=== PATIENT | female | born 1950 | race Caucasian/White ===

== ENCOUNTER 2017-01-26 13:16 | Day surgery (SDC) | payer OTHER ==
--- NOTE | 2017-01-22 21:11 | HP ---
CC: Dr. Lisa Fernandez; Dr. Darshan Mcintosh* ADMITTING HISTORY AND PHYSICAL: DATE OF ADMISSION: 01/26/17 ADMITTING DIAGNOSES: 1. Gross hematuria. 2. Calculus, right proximal ureter. PLANNED PROCEDURE: Shock wave lithotripsy of the calculus, right proximal ureter. SURGEON: Dr. Mcintosh. HISTORY OF PRESENT ILLNESS: Stephanie Tolbert is a 66-year-old lady with recurrent renal calculi. She was recently evaluated for gross hematuria. She was noted to have a 6-mm calculus at the right ureteropelvic junction and is now being brought in for lithotripsy. PAST MEDICAL HISTORY: Significant for: 1. Anxiety, depression. 2. Diabetes. 3. Hypertension. 4. Recurrent renal calculi. MEDICATIONS ON ADMISSION: 1. Duloxetine 60 mg q.a.m. 2. Lisinopril 20 mg q.a.m. 3. Glipizide 10 mg q.a.m. 4. Metformin 500 mg q.a.m. 5. Glipizide 10 mg q.p.m. 6. Metformin 1000 mg q.p.m. 7. [place] carbonate 600 mg a day alternating with 300 mg a day. 8. Atorvastatin 10 mg daily. ALLERGIES AND INTOLERANCES: FLOXIN, PROZAC, BIAXIN, NORTRIPTYLINE, and ZOLOFT. PHYSICAL EXAMINATION GENERAL: Reveals a pleasant, anxious-appearing, middle-aged lady. VITAL SIGNS: Blood pressure is 120/70, pulse 95 per minute, temperature 97.7, oxygen saturation 98% on room air. LUNGS: Clear bilaterally. CARDIOVASCULAR: Regular rate and rhythm. S1, S2. ABDOMEN: Soft with mild right flank tenderness. IMPRESSION AND PLAN: A 66-year-old lady with gross hematuria secondary to calculus at the right ureteropelvic junction. Planned procedure is shockwave lithotripsy of calculus, right proximal ureter. [id number]/[facility] #: [id number] [facility]
[~2017-01-26 13:16] MED LIST: Buffered Lidocaine 0.9% SYRIN* 5 ML/SYR SYRINGE INTRADERM ONE; Dexamethasone IV* 4 MG/ML 1 ML (4 MG) IV SLOW PU ONE; Famotidine IV* 10 MG/ML 2 ML (20 mg) IV ONE; Scopolamine 1.5 mg* PATCH TRANSDERM ONE
--- NOTE | 2017-01-26 13:56 | RAD ---
INDICATION: Right ureteral calculus. Gross hematuria. COMPARISON: Most recent KUB is dated January 22, 2017 TECHNIQUE: 2 views the abdomen were obtained. FINDINGS: Overlying the expected location of the right ureteropelvic junction/proximal ureter is a cluster of calcification measuring 6 mm in greatest dimension. This corresponds to a similar size calcification seen on the prior KUB. There are no large calcifications overlying the left collecting system or more inferior lower ureters. IMPRESSION:6 MM CLUSTER CALCIFICATIONS AT THE RIGHT URETEROPELVIC JUNCTION/PROXIMAL URETER SIMILAR IN APPEARANCE TO THE PRIOR KUB.
[2017-01-26] MEDS ORDERED: Famotidine IV* 10 MG/ML 2 ML (20 mg) ONE (14:15)
[2017-01-26] MEDS ORDERED: Dexamethasone IV* 4 MG/ML 1 ML (4 MG) ONE (14:15)
[2017-01-26] MEDS ORDERED: Scopolamine 1.5 mg* PATCH ONE (14:16)
[2017-01-26] MEDS ORDERED: cefTRIAXone(*) 2 GM ADDV.VIAL IVPB ONE (14:17)
[2017-01-26] MEDS ORDERED: Midazolam* 1 MG/ML 2 ML VIAL (2 MG) ONE (14:43)
[2017-01-26] MEDS ORDERED: fentaNYL* 50 MCG/ML 2 ML VIAL (100 MCG VIAL) ONE (14:43)
[2017-01-26] MEDS ORDERED: fentaNYL* 50 MCG/ML 2 ML VIAL (100 MCG VIAL) IV PRN ×2 (14:55)
[2017-01-26] MEDS ORDERED: DiMENhydriNATE IV* 50 MG/ML VIAL IV PUSH PRN (14:55)
[2017-01-26] MEDS ORDERED: Ondansetron INJ* 2 MG/ML VIAL ONE (15:47)
[2017-01-26] MEDS ORDERED: Propofol* 10 MG/ML 20 ML BTL IV PUSH ONE (15:47)
[2017-01-26 17:48] VITALS: BP 122/59
--- NOTE | 2017-01-26 18:11 | RAD ---
INDICATION: Right-sided ESWL COMPARISON: January 26, 2017 TECHNIQUE: A single view of the abdomen is submitted. FINDINGS: Bones: There are no acute bony findings. Soft tissues: The soft tissues appear normal. The psoas margins are sharp. Bowel gas pattern: Normal Calcifications: There is interval fragmentation of the right renal tricuspid multiple small fragments project over the expected position of the proximal right ureter. Other: None IMPRESSION: INTERVAL FRAGMENTATION OF RIGHT RENAL CALCULUS
--- NOTE | 2017-01-27 06:52 | OP ---
CC: Kamini Rubio NP; Dr. Mcintosh* OPERATIVE SUMMARY: DATE OF OPERATION: 01/26/17 - [facility] DATE OF : [birth year] SURGEON: Darshan Mcintosh MD ANESTHESIOLOGIST: Dr. Jimenez. ANESTHESIA: General. PRE-OP DIAGNOSIS: Calculus, right proximal ureter. POST-OP DIAGNOSIS: Calculus, right proximal ureter. OPERATIVE PROCEDURE: Shockwave lithotripsy of calculus, right ureter. INDICATIONS: Stephanie Tolbert is a 66-year-old lady with a history of recurrent renal calculi. She was recently evaluated for gross hematuria and noted to have a 6-7 mm calculus in the right proximal ureter. COMPLICATIONS: None. POSTOPERATIVE CONDITION: Stable. DESCRIPTION OF PROCEDURE: After induction of general anesthesia, the patient was placed on the lithotripsy table in supine position. The calculus in the proximal right ureter was identified using fluoroscopy. Shockwave lithotripsy was commenced at a rate of 90 shocks per minute. Periodic imaging revealed good localization and fragmentation and a total of 1400 shocks were administered. The patient tolerated the procedure satisfactorily and was transferred back to the recovery area in stable condition. [id number]/[facility] #: [id number] MTDD
== END 2017-01-26 17:46 | disposition home or self-care (01) ==
LOC: OR 13:16
PROVIDERS: ATTEND Urology
DX: N20.1 Calculus of ureter (principal); R31.0 Gross hematuria; E11.9 Type 2 diabetes mellitus without complications; Z79.84 Long term (current) use of oral hypoglycemic drugs; F41.8 Other specified anxiety disorders; I10 Essential (primary) hypertension; F31.9 Bipolar disorder, unspecified
CPT/HCPCS: 74000; A9270-GY; J0696; J1100; J2250; J2405; J2704; J3010

== ENCOUNTER 2018-04-20 08:42 | Day surgery (SDC) | payer MEDICARE, BC ==
[2018-04-20] MEDS ORDERED: Midazolam* 1 MG/ML 2 ML VIAL (2 MG) ONE (10:25)
[2018-04-20] MEDS ORDERED: fentaNYL* 50 MCG/ML 2 ML VIAL (100 MCG VIAL) ONE (10:25)
[2018-04-20] MEDS ORDERED: Ondansetron INJ* 2 MG/ML VIAL ONE (10:42)
[2018-04-20] MEDS ORDERED: Ketorolac 0.5% OPHTH (NF) 0.5 % 5 ML BTL ONE (11:12)
[2018-04-20] MEDS ORDERED: Phenylephrine 2.5% OPTH.SOL* 2 ML BTL ONE (11:12)
[2018-04-20] MEDS ORDERED: Neomycin/Polymy/Dex OPHTH.OIN* 3.5 GM ONE (11:12)
[2018-04-20] MEDS ORDERED: Tetracaine 0.5% OPTH.SOL 4 ML* 1 DROP BTL ONE (11:12)
[2018-04-20] MEDS ORDERED: Lidocaine 1%* 5 ML VIAL ONE (11:12)
[2018-04-20] MEDS ORDERED: Tropicamide 1% OPTH.SOL* BTL ONE (11:12)
[2018-04-20] MEDS ORDERED: Cyclopentolate 1% OPTH.SOL* 2 ML BTL ONE (11:12)
[2018-04-20 11:36] VITALS: BP 134/68
--- NOTE | 2018-04-20 12:50 | OP ---
DATE OF OPERATION/DATE OF DICTATION: 04/20/2018 - [facility] DATE OF : 1950. SURGEON: Dr. Raúl Toure. SALES REPRESENTATIVE PRINTING SUPPLIES: None. ANESTHESIA: Topical with intravenous sedation. PRE-OP DIAGNOSIS: Cataract, right eye. POST-OP DIAGNOSIS: Cataract, right eye. OPERATIVE PROCEDURE: Phacoemulsification and cataract extraction with posterior chamber intraocular lens implant, right eye. COMPLICATIONS: None. BLOOD LOSS: None. DESCRIPTION OF PROCEDURE: The patient was brought to the operating room and received a small amount of intravenous sedation. A drop of Tetracaine was placed in her right eye. She was prepped and draped in the usual sterile fashion for ophthalmic surgery and attention was directed to the right eye where a speculum was placed. A paracentesis was created at the 11 o'clock position and 0.1 cc of 1 percent preservative-free Lidocaine was injected into the anterior chamber followed by DisCoVisc. The eye was digitally stabilized while a 2.75 mm keratome was used to create a triplanar clear corneal incision at the 9 o'clock position. A continuous curvilinear capsulorrhexis was created with a cystotome and Utrata forceps. BSS on a cannula was used to hydrodissect the lens from the capsule. Phacoemulsification was performed in a divide-and- conquer technique to create four fragments which were removed. Residual cortical material was removed with irrigation and aspiration. DisCoVisc was used to inflate the capsular bag and an AUOOTO 21.0 diopter lens was folded and inserted into the capsular bag. DisCoVisc was removed using irrigation and aspiration. BSS on a cannula was used to hydrate the corneal stroma and seal the wound. At the end of the case the pupil was round and the lens was centered. The eye was of normal pressure and the wound was water tight. The speculum was removed and topical Maxitrol ointment was placed on the surface of the eye. The eye was closed, patched and shielded and the patient was sent to the recovery room in stable condition with post operative instructions and follow-up appointment given. [id number]/[facility] #: [id number] MTDD
== END 2018-04-20 11:45 | disposition home or self-care (01) ==
LOC: OREAST 08:42
PROVIDERS: ATTEND Ophthalmology
DX: H25.11 Age-related nuclear cataract, right eye (principal); E11.9 Type 2 diabetes mellitus without complications; Z79.84 Long term (current) use of oral hypoglycemic drugs; I10 Essential (primary) hypertension; E78.5 Hyperlipidemia, unspecified; F31.9 Bipolar disorder, unspecified
CPT/HCPCS: A9270-GY; J2250; J2405; J3010; V2632

== ENCOUNTER 2018-04-27 08:06 | Day surgery (SDC) | payer MEDICARE, BC ==
[~2018-04-27 08:06] MED LIST changes: +Acetaminophen TAB* 325 MG PO PRN; -Buffered Lidocaine 0.9% SYRIN* 5 ML/SYR SYRINGE INTRADERM ONE; +Buffered Lidocaine 1% SYRIN* 1 ML/SYRINGE INTRADERM ONE; -Dexamethasone IV* 4 MG/ML 1 ML (4 MG) IV SLOW PU ONE; -Famotidine IV* 10 MG/ML 2 ML (20 mg) IV ONE; -Scopolamine 1.5 mg* PATCH TRANSDERM ONE
[2018-04-27] MEDS ORDERED: Midazolam* 1 MG/ML 2 ML VIAL (2 MG) ONE (10:11)
[2018-04-27] MEDS ORDERED: fentaNYL* 50 MCG/ML 2 ML VIAL (100 MCG VIAL) ONE (10:11)
[2018-04-27] MEDS ORDERED: Ondansetron INJ* 2 MG/ML VIAL ONE (10:55)
[2018-04-27 11:39] VITALS: BP 137/65
[2018-04-27] MEDS ORDERED: Cyclopentolate 1% OPTH.SOL* 2 ML BTL ONE (11:48)
[2018-04-27] MEDS ORDERED: Neomycin/Polymy/Dex OPHTH.OIN* 3.5 GM ONE (11:48)
[2018-04-27] MEDS ORDERED: Phenylephrine 2.5% OPTH.SOL* 2 ML BTL ONE (11:48)
[2018-04-27] MEDS ORDERED: Lidocaine 1%* 5 ML VIAL ONE (11:48)
[2018-04-27] MEDS ORDERED: Tropicamide 1% OPTH.SOL* BTL ONE (11:48)
[2018-04-27] MEDS ORDERED: Tetracaine 0.5% OPTH.SOL 4 ML* 1 DROP BTL ONE (11:49)
[2018-04-27] MEDS ORDERED: Ketorolac 0.5% OPHTH (NF) 0.5 % 5 ML BTL ONE (11:49)
--- NOTE | 2018-04-27 12:38 | OP ---
DATE OF OPERATION: 04/27/18 [facility] DATE OF : [birth year]. SURGEON: Dr. Raúl Toure. FASTENER TECHNOLOGIST: None. ANESTHESIA: Topical with intravenous sedation. PRE-OP DIAGNOSIS: Cataract, left eye. POST-OP DIAGNOSIS: Cataract, left eye. OPERATIVE PROCEDURE: Phacoemulsification and cataract extraction with posterior chamber intraocular lens implant, left eye. COMPLICATIONS: None. BLOOD LOSS: None. DESCRIPTION OF PROCEDURE: The patient was brought to the operating room and received a small amount of intravenous sedation. A drop of Tetracaine was placed in her left eye. She was prepped and draped in the usual sterile fashion for ophthalmic surgery and attention was directed to the left eye where a speculum was placed. A paracentesis was created at the 5 o'clock position and 0.1 cc of 1 percent preservative-free Lidocaine was injected into the anterior chamber followed by DisCoVisc. The eye was digitally stabilized while a 2.75 mm keratome was used to create a triplanar clear corneal incision at the 3 o'clock position. A continuous curvilinear capsulorrhexis was created with a cystotome and Utrata forceps. BSS on a cannula was used to hydrodissect the lens from the capsule. Phacoemulsification was performed in a divide-and- conquer technique to create four fragments which were removed. Residual cortical material was removed with irrigation and aspiration. DisCoVisc was used to inflate the capsular bag and an AU00T0 21.5 diopter lens was folded and inserted into the capsular bag. DisCoVisc was removed using irrigation and aspiration. BSS on a cannula was used to hydrate the corneal stroma and seal the wound. At the end of the case the pupil was round and the lens was centered. The eye was of normal pressure and the wound was water tight. The speculum was removed and topical Maxitrol ointment was placed on the surface of the eye. The eye was closed, patched and shielded and the patient was sent to the recovery room in stable condition with post operative instructions and follow-up appointment given. [id number]/[facility] #: [id number] MARIA C
== END 2018-04-27 11:35 | disposition home or self-care (01) ==
LOC: OREAST 08:06
PROVIDERS: ATTEND Ophthalmology
DX: H25.12 Age-related nuclear cataract, left eye (principal); E11.9 Type 2 diabetes mellitus without complications; Z79.84 Long term (current) use of oral hypoglycemic drugs; I10 Essential (primary) hypertension; E78.5 Hyperlipidemia, unspecified; F31.9 Bipolar disorder, unspecified
CPT/HCPCS: A9270-GY; J2250; J2405; J3010; V2632

== ENCOUNTER 2019-12-15 09:22 | Inpatient (IN) ==
[2019-12-15 09:56] LABS: ABS Basophils 0.1 10^3/ul (0-0.2); ABS Eosinophils 0.1 10^3/ul (0-0.6); ABS Lymphocytes 2.1 10^3/ul (1.0-4.8); ABS Monocytes 1.1 10^3/ul (0-0.8); ABS Neutrophils 12.8 10^3/ul (1.5-7.7); Eosinophil % 0.8 %; Hematocrit 45 % (35-47); Hemoglobin 14.8 g/dL (12.0-16.0); Lymphocyte % 12.8 %; Mean Corpuscular HGB Conc 33 g/dL (31-36); Mean Corpuscular Hemoglobin 29 pg (27-31); Mean Corpuscular Volume 87 fL (80-97); Mean Platelet Volume 8.2 fL (7.4-10.4); Platelet Count 419 10^3/uL (150-450); Red Blood Count 5.15 10^6 /uL (3.70-4.87); Red Cell Distribution Width 14 % (10-15)
[2019-12-15 10:13] LABS: ALT 54 U/L (7-52); AST 28 U/L (13-39); Albumin 4.8 g/dL (3.2-5.2); Albumin/Globulin Ratio 1.9 (1-3); Alkaline Phosphatase 96 U/L (34-104); Anion Gap 11 mmol/L (2-11); BUN/Creatinine Ratio 20.5 (8-20); Blood Urea Nitrogen 15 mg/dL (6-24); CO2 Carbon Dioxide 20 mmol/L (22-32); Calcium 11.2 mg/dL (8.6-10.3); Chloride 105 mmol/L (101-111); EGFR African American 96.2 (>60); EGFR Non-African American 79.5 (>60); Globulin 2.5 g/dL (2-4); Glucose 171 mg/dL (70-100); Sodium 136 mmol/L (135-145); Total Protein 7.3 g/dL (6.4-8.9)
[2019-12-15 10:54] LABS: Acetaminophen < 15 mcg/mL; Alcohol, S < 10 mg/dL (<10); Salicylate < 2.50 mg/dL (<30)
[2019-12-15 11:03] LABS: TSH Ultra Thyroid Stim Horm 1.86 mcIU/mL (0.34-5.60)
[2019-12-15] MEDS: metroNIDAZOLE VAGINAL 0.75% 70 GM VAGINAL SCH (20:04)
[2019-12-16 08:23] LABS: HDL Cholesterol 34.9 mg/dL
[2019-12-16] MEDS: Aspirin EC 81 mg TAB.EC (enteric coated) PO SCH (08:30)
[2019-12-16] MEDS: Vitamin THERAPEUTIC TAB PO SCH (08:32)
[2019-12-16] MEDS: MAGNESIUM PO SCH (08:33)
[2019-12-16] MEDS ORDERED: DULoxetine DR 30 mg CAP PO SCH (09:00)
[2019-12-16] MEDS: metroNIDAZOLE VAGINAL 0.75% 70 GM VAGINAL SCH (20:37)
[2019-12-16] MEDS: Lithium Carbonate ER 450mg TAB PO SCH (20:51)
[2019-12-17] MEDS: Vitamin THERAPEUTIC TAB PO SCH (07:47)
[2019-12-17] MEDS: DULoxetine DR 30 mg CAP PO SCH (07:47)
[2019-12-17] MEDS: Aspirin EC 81 mg TAB.EC (enteric coated) PO SCH (07:47)
[2019-12-17] MEDS: MAGNESIUM PO SCH (07:48)
[2019-12-17] MEDS: Al Hydrox/Mg Hydrox/Simet LIQ 30 ML UDC PO PRN (14:14)
[2019-12-17] MEDS: Lithium Carbonate ER 450mg TAB PO SCH (20:07)
[2019-12-17] MEDS: metroNIDAZOLE VAGINAL 0.75% 70 GM VAGINAL SCH (20:09)
[2019-12-18] MEDS ORDERED: Dextrose 50% Syringe 50 ml 25 GM/50 ML SYRINGE IV PUSH PRN ×2 (08:24→09:04)
[2019-12-18] MEDS: MAGNESIUM PO SCH (09:46)
[2019-12-18] MEDS: Aspirin EC 81 mg TAB.EC (enteric coated) PO SCH (09:57)
[2019-12-18] MEDS: Vitamin THERAPEUTIC TAB PO SCH (09:57)
[2019-12-18] MEDS: DULoxetine DR 30 mg CAP PO SCH (09:57)
[2019-12-18 12:30] LABS: Urine Appearance Cloudy; Urine Bilirubin Negative (Negative); Urine Blood Negative (Negative); Urine Color Yellow; Urine Glucose 2+(150 mg/dL) (Negative); Urine Ketones Negative (Negative); Urine Nitrite Negative (Negative); Urine Protein Negative (Negative); Urine Specific Gravity 1.012 (1.010-1.030); Urine Urobilinogen Negative (Negative)
[2019-12-18 12:42] LABS: Urine Benzodiazepine Screen None Detected (None Detect); Urine Cannabinoids Screen None Detected (None Detect); Urine Opiates Screen None Detected (None Detect)
[2019-12-18] MEDS: Lithium Carbonate ER 450mg TAB PO SCH (19:42)
[2019-12-18] MEDS: metroNIDAZOLE VAGINAL 0.75% 70 GM VAGINAL SCH (20:37)
[2019-12-19] MEDS: Vitamin THERAPEUTIC TAB PO SCH (08:32)
[2019-12-19] MEDS: MAGNESIUM PO SCH (08:32)
[2019-12-19] MEDS: DULoxetine DR 30 mg CAP PO SCH (08:32)
[2019-12-19] MEDS: Aspirin EC 81 mg TAB.EC (enteric coated) PO SCH (08:32)
[2019-12-19] MEDS: Lithium Carbonate ER 450mg TAB PO SCH (20:07)
[2019-12-19] MEDS: metroNIDAZOLE VAGINAL 0.75% 70 GM VAGINAL SCH (21:21)
[2019-12-20] MEDS: Aspirin EC 81 mg TAB.EC (enteric coated) PO SCH (08:22)
[2019-12-20] MEDS: DULoxetine DR 30 mg CAP PO SCH (08:22)
[2019-12-20] MEDS: MAGNESIUM PO SCH (08:23)
[2019-12-20] MEDS: Vitamin THERAPEUTIC TAB PO SCH (08:23)
[2019-12-20] MEDS: Lithium Carbonate ER 450mg TAB PO SCH (19:31)
[2019-12-21] MEDS: Aspirin EC 81 mg TAB.EC (enteric coated) PO SCH (07:54)
[2019-12-21] MEDS: Vitamin THERAPEUTIC TAB PO SCH (07:54)
[2019-12-21] MEDS ORDERED: DULoxetine DR 20 mg CAP PO SCH (09:00)
[2019-12-21] MEDS: Lithium Carbonate ER 450mg TAB PO SCH (19:57)
[2019-12-22 07:48] LABS: Calcium 11.4 mg/dL (8.6-10.3); EGFR African American 86.6 (>60); EGFR Non-African American 71.5 (>60); Potassium 5.1 mmol/L (3.5-5.0)
[2019-12-22 08:20] LABS: Lithium 1.7 mmol/L (0.6-1.2)
[2019-12-22] MEDS: Aspirin EC 81 mg TAB.EC (enteric coated) PO SCH (08:25)
[2019-12-22] MEDS: Vitamin THERAPEUTIC TAB PO SCH (08:25)
[2019-12-23 07:34] LABS: BUN/Creatinine Ratio 36.9 (8-20); Calcium 11.7 mg/dL (8.6-10.3); EGFR African American 81.8 (>60); EGFR Non-African American 67.6 (>60); Potassium 4.8 mmol/L (3.5-5.0)
[2019-12-23] MEDS: Aspirin EC 81 mg TAB.EC (enteric coated) PO SCH (07:50)
[2019-12-23] MEDS: Vitamin THERAPEUTIC TAB PO SCH (07:51)
[2019-12-23 13:48] LABS: Urine Calcium 43 mg/24 h (<200); Urine Calcium Conc 5 mg/dL; Urine Collection Duration 24 h
[2019-12-24 07:30] LABS: Hematocrit 40 % (35-47); Hemoglobin 13.7 g/dL (12.0-16.0); Mean Corpuscular HGB Conc 34 g/dL (31-36); Mean Corpuscular Hemoglobin 30 pg (27-31); Mean Corpuscular Volume 86 fL (80-97); Platelet Count 378 10^3/uL (150-450); Red Blood Count 4.61 10^6 /uL (3.70-4.87); Red Cell Distribution Width 13 % (10-15); White Blood Count 12.5 10^3/uL (3.5-10.8)
[2019-12-24 07:47] LABS: Albumin 4.3 g/dL (3.2-5.2); Albumin/Globulin Ratio 1.7 (1-3); BUN/Creatinine Ratio 32.9 (8-20); Calcium 11.1 mg/dL (8.6-10.3); EGFR African American 84.1 (>60); EGFR Non-African American 69.5 (>60); Globulin 2.6 g/dL (2-4); Magnesium 1.8 mg/dL (1.9-2.7); Potassium 4.9 mmol/L (3.5-5.0); Total Bilirubin 0.6 mg/dL (0.2-1.0); Total Protein 6.9 g/dL (6.4-8.9)
[2019-12-24 08:09] LABS: Lithium 0.92 mmol/L (0.6-1.2)
[2019-12-24] MEDS: Aspirin EC 81 mg TAB.EC (enteric coated) PO SCH (08:53)
[2019-12-24] MEDS: Vitamin THERAPEUTIC TAB PO SCH (08:53)
[2019-12-24 08:57] LABS: ABS Basophils 0.1 10^3/ul (0-0.2); ABS Eosinophils 0.2 10^3/ul (0-0.6); ABS Lymphocytes 2.3 10^3/ul (1.0-4.8); ABS Monocytes 0.7 10^3/ul (0-0.8); ABS Neutrophils 9.2 10^3/ul (1.5-7.7); Eosinophil % 1.5 %; Lymphocyte % 18.1 %
[2019-12-25] MEDS: Aspirin EC 81 mg TAB.EC (enteric coated) PO SCH (08:10)
[2019-12-25] MEDS: Vitamin THERAPEUTIC TAB PO SCH (08:10)
[2019-12-25 09:02] LABS: Lithium 0.68 mmol/L (0.6-1.2)
[2019-12-26] MEDS: Aspirin EC 81 mg TAB.EC (enteric coated) PO SCH (09:13)
[2019-12-26] MEDS: Vitamin THERAPEUTIC TAB PO SCH (09:13)
[2019-12-26 17:10] LABS: Albumin 3.2 g/dL (3.4-4.7); Albumin/Globulin Ratio 1.16; Gamma Globulin 0.5 g/dL (0.6-1.6)
[2019-12-26] MEDS: Al Hydrox/Mg Hydrox/Simet LIQ 30 ML UDC PO PRN (18:07)
[2019-12-26 18:48] LABS: Calcium 11.5 mg/dL (8.6-10.3)
[2019-12-26 21:32] LABS: Kappa Free Light Chain 1.49 mg/dL; Lambda Free Light Chain 1.53 mg/dL
[2019-12-27] MEDS: Aspirin EC 81 mg TAB.EC (enteric coated) PO SCH (08:19)
[2019-12-27] MEDS: Vitamin THERAPEUTIC TAB PO SCH (08:20)
[2019-12-28] MEDS: Aspirin EC 81 mg TAB.EC (enteric coated) PO SCH (07:52)
[2019-12-28] MEDS: Vitamin THERAPEUTIC TAB PO SCH (08:01)
[2019-12-28 10:35] LABS: Albumin 37 %; Gamma Globulin 8 %; Total Protein(PEP) Urine 13 mg/dL
[2019-12-29] MEDS: Aspirin EC 81 mg TAB.EC (enteric coated) PO SCH (08:28)
[2019-12-29] MEDS: Vitamin THERAPEUTIC TAB PO SCH (09:27)
[2019-12-30 08:20] LABS: BUN/Creatinine Ratio 28.4 (8-20); Calcium 10.1 mg/dL (8.6-10.3); EGFR African American 106.2 (>60); EGFR Non-African American 87.8 (>60); Magnesium 1.9 mg/dL (1.9-2.7); Potassium 4.7 mmol/L (3.5-5.0)
[2019-12-30] MEDS: Aspirin EC 81 mg TAB.EC (enteric coated) PO SCH (08:25)
[2019-12-30] MEDS: Vitamin THERAPEUTIC TAB PO SCH (08:25)
[2019-12-30 09:11] VITALS: BP 142/71
== END 2019-12-30 09:30 | disposition home or self-care (01) | DRG 885 ==
LOC: ED 09:22 → BSU 14:20 → MEDTELE 12-18 09:27 → BSU 12-19 11:26
PROVIDERS: ADMIT Psychiatry & Neurology Psychiatry; ATTEND Psychiatry & Neurology Psychiatry

== ENCOUNTER 2020-01-11 09:38 | Inpatient (IN) ==
[2020-01-11] MEDS ORDERED: NS 0.9% 1000 ml BAG 1,000 ML IV ONE ×2 (09:58→10:56)
[2020-01-11] MEDS ORDERED: Lorazepam PYXIS KEY PRN (09:59)
[2020-01-11] MEDS ORDERED: LORazepam 2 mg VIAL 1 ml IV PUSH ONE (09:59)
[2020-01-11 10:20] LABS: ABS Monocytes 0.8 10^3/ul (0-0.8); ABS Neutrophils 7.1 10^3/ul (1.5-7.7); Eosinophil % 0.3 %; Hematocrit 39 % (35-47); Hemoglobin 13.3 g/dL (12.0-16.0); Lymphocyte % 19.9 %; Mean Corpuscular HGB Conc 34 g/dL (31-36); Mean Corpuscular Hemoglobin 30 pg (27-31); Mean Corpuscular Volume 86 fL (80-97); Mean Platelet Volume 8.3 fL (7.4-10.4); Platelet Count 401 10^3/uL (150-450); Red Blood Count 4.51 10^6 /uL (3.70-4.87); Red Cell Distribution Width 14 % (10-15); White Blood Count 9.9 10^3/uL (3.5-10.8)
[2020-01-11 10:42] LABS: ALT 46 U/L (7-52); AST 22 U/L (13-39); Albumin 4.3 g/dL (3.2-5.2); Albumin/Globulin Ratio 1.7 (1-3); Alkaline Phosphatase 96 U/L (34-104); Anion Gap 12 mmol/L (2-11); BUN/Creatinine Ratio 25.6 (8-20); Blood Urea Nitrogen 22 mg/dL (6-24); CO2 Carbon Dioxide 23 mmol/L (22-32); Calcium 10.3 mg/dL (8.6-10.3); Chloride 103 mmol/L (101-111); Creatine Kinase 42 U/L (10-223); EGFR African American 79.6 (>60); EGFR Non-African American 65.8 (>60); Globulin 2.5 g/dL (2-4); Glucose 165 mg/dL (70-100); Magnesium 2.2 mg/dL (1.9-2.7); Potassium 3.9 mmol/L (3.5-5.0); Sodium 138 mmol/L (135-145); Total Protein 6.8 g/dL (6.4-8.9)
[2020-01-11 10:43] LABS: Troponin I 0.01 ng/mL (<0.03)
[2020-01-11 10:57] LABS: Urine Appearance Cloudy; Urine Benzodiazepine Screen None Detected (None Detect); Urine Bilirubin Negative (Negative); Urine Blood 1+ (Negative); Urine Cannabinoids Screen None Detected (None Detect); Urine Color Straw; Urine Glucose Negative (Negative); Urine Ketones Trace (Negative); Urine Nitrite Negative (Negative); Urine Opiates Screen None Detected (None Detect); Urine Protein Negative (Negative); Urine Specific Gravity 1.004 (1.010-1.030); Urine Urobilinogen Negative (Negative)
[2020-01-11 11:04] LABS: Alcohol, S < 10 mg/dL (<10)
[2020-01-11 11:17] LABS: Urine Bacteria 1+ (Absent); Urine Red Blood Cell Trace(0-2/hpf) (Absent); Urine Squamous Epithelial Cell Present (Absent); Urine White Blood Cell Trace(0-5/hpf) (Absent)
[2020-01-11 11:19] LABS: TSH Ultra Thyroid Stim Horm 0.83 mcIU/mL (0.34-5.60)
[2020-01-11] MEDS ORDERED: Al Hydrox/Mg Hydrox/Simet LIQ 30 ML UDC PO PRN (14:05)
[2020-01-11] MEDS ORDERED: Ondansetron 4 mg VIAL 2 MG/ML 2 ml VIAL IV PRN (14:05)
[2020-01-11] MEDS ORDERED: Dextrose 50% Syringe 50 ml 25 GM/50 ML SYRINGE IV PUSH PRN (14:09)
[2020-01-11 14:42] LABS: Prealbumin 30 mg/dL (18-38)
[2020-01-11] MEDS: NS 0.9% 1000 ml BAG 1,000 ML IV SCH (17:17)
[2020-01-11] MEDS: Heparin 5000 UNITS/ML 1 mL VIAL SUBCUT SCH (21:08)
[2020-01-12] MEDS: NS 0.9% 1000 ml BAG 1,000 ML IV SCH ×2 (02:53→13:07)
[2020-01-12 04:30] LABS: Urine Appearance Cloudy; Urine Bilirubin Negative (Negative); Urine Blood Negative (Negative); Urine Color Yellow; Urine Glucose Negative (Negative); Urine Ketones Trace (Negative); Urine Nitrite Negative (Negative); Urine Protein Negative (Negative); Urine Specific Gravity 1.011 (1.010-1.030); Urine Urobilinogen Negative (Negative)
[2020-01-12] MEDS: Heparin 5000 UNITS/ML 1 mL VIAL SUBCUT SCH ×3 (05:48→21:55)
[2020-01-12 05:54] LABS: ABS Lymphocytes 1.5 10^3/ul (1.0-4.8); ABS Monocytes 0.5 10^3/ul (0-0.8); ABS Neutrophils 4.4 10^3/ul (1.5-7.7); Eosinophil % 0.3 %; Hematocrit 31 % (35-47); Hemoglobin 10.6 g/dL (12.0-16.0); Lymphocyte % 22.9 %; Mean Corpuscular HGB Conc 34 g/dL (31-36); Mean Corpuscular Hemoglobin 30 pg (27-31); Mean Corpuscular Volume 87 fL (80-97); Mean Platelet Volume 8.3 fL (7.4-10.4); Platelet Count 278 10^3/uL (150-450); Red Blood Count 3.59 10^6 /uL (3.70-4.87); Red Cell Distribution Width 14 % (10-15); White Blood Count 6.5 10^3/uL (3.5-10.8)
[2020-01-12 06:13] LABS: BUN/Creatinine Ratio 23.8 (8-20); Calcium 8.8 mg/dL (8.6-10.3); EGFR African American 114.1 (>60); EGFR Non-African American 94.3 (>60); Potassium 3.5 mmol/L (3.5-5.0)
[2020-01-12] MEDS ORDERED: Haloperidol 5 mg/ml SDV IV/IM 5 MG/ML AMP ONE (21:01)
[2020-01-12] MEDS: Haloperidol 5 mg/ml SDV IV/IM 5 MG/ML AMP IV PRN (21:06)
[2020-01-12] MEDS ORDERED: Lorazepam PYXIS KEY PRN (22:29)
[2020-01-12] MEDS ORDERED: LORazepam 2 mg VIAL 1 ml IV PUSH ONE (22:29)
[2020-01-13] MEDS: NS 0.9% 1000 ml BAG 1,000 ML IV SCH ×2 (01:30→09:19)
[2020-01-13] MEDS ORDERED: Lorazepam PYXIS KEY PRN ×2 (04:25→14:32)
[2020-01-13] MEDS ORDERED: LORazepam 2 mg VIAL 1 ml IV PUSH ONE (04:25)
[2020-01-13] MEDS ORDERED: Ziprasidone IM 20 mg VIAL 1 ml VIAL IM ONE (05:26)
[2020-01-13] MEDS: Heparin 5000 UNITS/ML 1 mL VIAL SUBCUT SCH ×3 (06:05→23:01)
[2020-01-13] MEDS: Haloperidol 5 mg/ml SDV IV/IM 5 MG/ML AMP IV PRN ×2 (10:55→20:21)
[2020-01-13] MEDS ORDERED: LORazepam 2 mg VIAL 1 ml IM PRN (14:32)
[2020-01-14] MEDS: Heparin 5000 UNITS/ML 1 mL VIAL SUBCUT SCH ×3 (05:33→21:15)
[2020-01-14] MEDS: NS 0.9% 1000 ml BAG 1,000 ML IV SCH ×3 (05:55→21:17)
[2020-01-14 06:38] LABS: ABS Eosinophils 0.1 10^3/ul (0-0.6); ABS Lymphocytes 1.6 10^3/ul (1.0-4.8); ABS Monocytes 0.6 10^3/ul (0-0.8); Eosinophil % 0.7 %; Hematocrit 34 % (35-47); Hemoglobin 11.7 g/dL (12.0-16.0); Lymphocyte % 21.8 %; Mean Corpuscular HGB Conc 34 g/dL (31-36); Mean Corpuscular Hemoglobin 30 pg (27-31); Mean Corpuscular Volume 87 fL (80-97); Mean Platelet Volume 7.8 fL (7.4-10.4); Platelet Count 298 10^3/uL (150-450); Red Blood Count 3.97 10^6 /uL (3.70-4.87); Red Cell Distribution Width 14 % (10-15); White Blood Count 7.3 10^3/uL (3.5-10.8)
[2020-01-14 07:04] LABS: Calcium 8.3 mg/dL (8.6-10.3); EGFR African American 120.7 (>60); EGFR Non-African American 99.7 (>60); Potassium 2.9 mmol/L (3.5-5.0)
[2020-01-14 09:41] LABS: Magnesium 1.4 mg/dL (1.9-2.7)
[2020-01-14] MEDS ORDERED: Magnesium Sulfate 2 gm BAG 2 GM/50 ML BAG IVPB ONE (10:10)
[2020-01-14] MEDS ORDERED: Magnesium Sulfate IV 3 GM in NS 0.9% 100 ml BAG 100 ML IVPB ONE (10:15)
[2020-01-14] MEDS: KCL 20 MEQ/100 ML IVPREMIX 20 MEQ/100 ML BAG IV SCH ×3 (13:24→18:11)
[2020-01-14] MEDS: LORazepam 2 mg VIAL 1 ml IV PUSH PRN (15:01)
[2020-01-14] MEDS: Haloperidol 5 mg/ml SDV IV/IM 5 MG/ML AMP IV PRN (19:31)
[2020-01-15] MEDS: Heparin 5000 UNITS/ML 1 mL VIAL SUBCUT SCH ×3 (05:50→20:55)
[2020-01-15 06:24] LABS: Calcium 8.7 mg/dL (8.6-10.3); Potassium 3.5 mmol/L (3.5-5.0)
[2020-01-15 06:29] LABS: BUN/Creatinine Ratio 14.8 (8-20); EGFR African American 118.4 (>60); EGFR Non-African American 97.8 (>60)
[2020-01-15] MEDS: LORazepam 2 mg VIAL 1 ml IV PUSH PRN ×2 (11:39→18:19)
[2020-01-15] MEDS: NS 0.9% 1000 ml BAG 1,000 ML IV SCH (11:39)
[2020-01-15 16:13] LABS: Urine Appearance Cloudy; Urine Bacteria 1+ (Absent); Urine Bilirubin Negative (Negative); Urine Blood 3+ (Negative); Urine Glucose 2+(150 mg/dL) (Negative); Urine Ketones Negative (Negative); Urine Nitrite Negative (Negative); Urine Protein Negative (Negative); Urine Red Blood Cell 3+(>10/hpf) (Absent); Urine Specific Gravity 1.009 (1.010-1.030); Urine Squamous Epithelial Cell Present (Absent); Urine Urobilinogen Negative (Negative); Urine White Blood Cell 3+(>20/hpf) (Absent)
[2020-01-15 16:15] LABS: Urine Color Yellow
[2020-01-16] MEDS: Heparin 5000 UNITS/ML 1 mL VIAL SUBCUT SCH ×2 (06:10→14:27)
[2020-01-16 06:54] LABS: ABS Basophils 0.1 10^3/ul (0-0.2); ABS Eosinophils 0.1 10^3/ul (0-0.6); ABS Lymphocytes 2.2 10^3/ul (1.0-4.8); ABS Monocytes 0.5 10^3/ul (0-0.8); ABS Neutrophils 5.2 10^3/ul (1.5-7.7); Eosinophil % 1.6 %; Hematocrit 32 % (35-47); Hemoglobin 10.6 g/dL (12.0-16.0); Lymphocyte % 27.3 %; Mean Corpuscular HGB Conc 34 g/dL (31-36); Mean Corpuscular Hemoglobin 29 pg (27-31); Mean Corpuscular Volume 87 fL (80-97); Mean Platelet Volume 8.2 fL (7.4-10.4); Platelet Count 245 10^3/uL (150-450); Red Blood Count 3.61 10^6 /uL (3.70-4.87); Red Cell Distribution Width 14 % (10-15); White Blood Count 8.1 10^3/uL (3.5-10.8)
[2020-01-16 07:09] LABS: BUN/Creatinine Ratio 11.5 (8-20); Calcium 8.6 mg/dL (8.6-10.3); EGFR African American 118.4 (>60); EGFR Non-African American 97.8 (>60); Potassium 3.4 mmol/L (3.5-5.0)
[2020-01-16] MEDS ORDERED: Potassium Chlor 20 meq TAB.ER PO ONE (08:11)
[2020-01-16] MEDS: LORazepam 2 mg VIAL 1 ml IV PUSH PRN (09:57)
[2020-01-16 11:56] VITALS: BP 137/61
[2020-01-18 15:21] LABS: Kappa Free Light Chain 0.964 mg/dL; Lambda Free Light Chain 0.673 mg/dL
== END 2020-01-16 14:25 | disposition home or self-care (01) | DRG 641 ==
LOC: ED 09:38 → MEDTELE 14:05
PROVIDERS: ADMIT Pediatrics; ATTEND Pediatrics